=== PATIENT | female | born 1960 | race Caucasian/White ===

== ENCOUNTER 2018-06-01 08:11 | Emergency (ER) | payer BC ==
[2018-06-01 08:52] VITALS: BP 106/75
--- NOTE | 2018-06-01 09:06 | UC ---
UC General HPI - HPI Summary HPI Summary: 57 -year-old female with history of scoliosis, chronic back pain, presents with episode of gradual onset generalized body aches at home approximately 3 days prior, associated with gradual onset mild headache, and general malaise. Patient has back pain is relieved with standing, worse with sitting, not associated with any weakness of the upper or lower shortness, not associated with any urinary or bowel symptoms, or fevers. Similar to many prior episodes in the past. - History of Current Complaint Chief Complaint: UCBackPain Stated Complaint: HEADACHE,BACK PAIN,DRY MOUTH Time Seen by Provider: 06/01/18 09:05 Pain Intensity: 6 - Allergy/Home Medications Allergies/Adverse Reactions: Allergies Allergy/AdvReac Type Severity Reaction Status Date / Time No Known Allergies Allergy Verified 06/01/18 08:42 Home Medications: Home Medications Ibuprofen TAB* [Advil TAB*] 400 mg Q4HR PRN 06/01/18 [History Confirmed 06/01/18 ] Levothyroxine TAB* [Synthroid 25 MCG TAB*] 1 tab DAILY 06/01/18 [History Confirmed 06/01/18] PMH/Surg Hx/FS Hx/Imm Hx - Additional Past Medical History Additional PMH: Hypothyroidism. No history of diabetes - Surgical History Surgical History: None - Social History Alcohol Use: Occasionally Substance Use Type: None Smoking Status (MU): Heavy Every Day Tobacco Smoker Type: Cigarettes Amount Used/How Often: 1/2 PPD Length of Time of Smoking/Using Tobacco: 20 years - Immunization History Most Recent Tetanus Shot: UTD Review of Systems Constitutional: Fatigue Musculoskeletal: Other: - Back pain as described in history of present illness All Other Systems Reviewed And Are Negative: Yes Physical Exam - Summary Physical Exam Summary: Gen: alert, in no acute distress HEENT: EOMI, normoecphalic, atruamatic Neck: supple, no masses CV: Normal s1 s2, no murmurs Resp: normal breath sounds b/l GI: no tenderness, no masses Musculoskeletal: normal ROM all 4 extremities. No sensory deficits. No motor deficits in the arms or legs. Mild tenderness to the lower back diffusely and bilaterally, no midline tenderness. Skin: no rash Lymph: no lymphadenopathy Psych: appropriate affect, oriented Triage Information Reviewed: Yes Appearance: Well-Appearing Vital Signs: Initial Vital Signs Temp 37.3 C 06/01/18 08:44 Pulse 92 06/01/18 08:44 Resp 16 06/01/18 08:44 BP 106/75 06/01/18 08:44 Pulse Ox 99 06/01/18 08:44 Course/Dx - Course Course Of Treatment: Patient given 1 dose of Toradol and Decadron for relief pain here, walking normally, vital signs within normal limits, instructed to follow up with primary care physician. Likely viral syndrome or musculoskeletal back pain consistent with prior episodes. She agrees to understands discharge instructions. - Differential Dx - Multi-Symptom Provider Diagnoses: Back pain, viral syndrome Discharge - Sign-Out/Discharge Documenting (check all that apply): Patient Departure - home All imaging exams completed and their final reports reviewed: No Studies - Discharge Plan Condition: Stable Disposition: HOME Patient Education Materials: Viral Syndrome (ED), Chronic Back Pain (ED) Referrals: Tej HASSAN,Marily Martin [Primary Care Provider] - Additional Instructions: PLEASE AVOID TYLENOL OR ASPIRIN FOR TODAY, ALTERNATE MOTRIN AND TYLENOL EVERY 4 HOURS THEREAFTER, ALLOWING APPROXIMATELY 8 HOURS BETWEEN EACH DOSE OF EACH MEDICATION PLEASE MAKE AN APPOINTMENT TO SEE YOUR PRIMARY CARE DOCTOR WITHIN 1 WEEK FOR REEVALUATION OF BACK PAIN PLEASE REPORT TO THE ER FOR ANY WORSENING OR CONCERNING SYMPTOMS - Billing Disposition and Condition Condition: STABLE Disposition: Home
[2018-06-01] MEDS ORDERED: Ketorolac INJ* 30 MG/ML 1 ML VIAL IM ONE (09:16)
[2018-06-01] MEDS ORDERED: Dexamethasone IV* 4 MG/ML 1 ML (4 MG) IM ONE (09:16)
== END 2018-06-01 09:50 | disposition home or self-care (01) ==
LOC: UCCORT 08:11
DX: B34.9 Viral infection, unspecified (principal); M54.9 Dorsalgia, unspecified; G89.29 Other chronic pain; F17.210 Nicotine dependence, cigarettes, uncomplicated; M41.9 Scoliosis, unspecified; E03.9 Hypothyroidism, unspecified; Z79.899 Other long term (current) drug therapy
CPT/HCPCS: 96372; 99211; G0463; J1100; J1885